=== PATIENT | male | born 1985 | race Caucasian/White ===

== ENCOUNTER 2024-11-07 17:15 | Emergency (ER) | payer OTHER ==
[~2024-11-07] VITALS: Ht 170.2 cm; Wt 74.8 kg
[2024-11-07 17:23] VITALS: BP 150/73; TEMP 98.3; O2SAT 99
== END 2024-11-07 22:16 | disposition home or self-care (01) ==
LOC: ER 17:30
DX: S64.22XA Injury of radial nerve at wrist and hand level of left arm, initial encounter (principal); W22.8XXA Striking against or struck by other objects, initial encounter; Y93.89 Activity, other specified; Y92.89 Other specified places as the place of occurrence of the external cause; Y99.8 Other external cause status
CPT/HCPCS: 73110